=== PATIENT | female | born 1995 | race Caucasian/White ===

== ENCOUNTER 2017-01-06 10:39 | Inpatient (IN) | payer BC ==
[~2017-01-06] VITALS: Ht 157.5 cm; Wt 85.7 kg
[2017-01-06] MEDS ORDERED: PREN1TAB62 PO (11:00)
[2017-01-06 11:02] VITALS: Ht 157.5 cm; Wt 85.7 kg
[2017-01-06 11:04] VITALS: BP 107/81; PULSE 80; RESP 18
[2017-01-06 11:38] LABS: ADD UMIC YES; URINE BILIRUBIN (Dip) NEGATIVE (NEGATIVE); URINE BLOOD (Dip) 3+ (NEGATIVE); URINE COLOR LT. YELLOW (YELLOW); URINE GLUCOSE (Dip) NEGATIVE (NEGATIVE); URINE KETONES (Dip) NEGATIVE (NEGATIVE); URINE LEUKOCYTE ESTERASE (Dip) NEGATIVE (NEGATIVE); URINE NITRITE (Dip) NEGATIVE (NEGATIVE); URINE TOTAL PROTEIN (Dip) 1+ (NEGATIVE); URINE UROBILINOGEN (Dip) 0.2 E.U./dL (0.1-1.0)
--- NOTE | 2017-01-06 11:42 | RADRPT ---
PROCEDURE: OB ultrasound for biophysical profile CLINICAL INDICATION: Poor tone. TECHNIQUE: Multiple sonographic images of the pelvis were obtained. Transabdominal views of the g ravid uterus are available for review. The images were reviewed on a PACS workstation. COMPARISON: None FINDINGS: breathing movement = 2/2 tone = 2/2 motion = 2/2 SELAM = 2/2 SELAM = 7.0 cm Single live intrauterine with cardiac activity of 136 bpm. position is cephal ic. The placenta is anterior. IMPRESSION: 1. Single live intrauterine gestation. 2. Biophysical profile = 8/8. 3. SELAM = 7.0 cm. RPTAT: HH .Pratibha Marin MD, MD Date Time Electronically viewed and signed by .Pratibha Marin MD, on 01/06/2017 11:42 .G/
--- NOTE | 2017-01-06 11:44 | RADRPT ---
PROCEDURE: US OB. CLINICAL INDICATION: Size and dates TECHNIQUE: Multiple sonographic images of the pelvis were obtained. Transabdominal imaging only w as performed. The images were reviewed on a PACS workstation. COMPARISON: No prior studies are available for comparison. FINDINGS: There is a single live intrauterine gestation. Cardiac activity is present with 129 beats per minut e. position is cephalic. Measurements were made in order to determine age. The results are as follows: BPD = 8.54 cm HC = 30.10 cm AC = 32.62 cm FL = 7.02 cm. Estimated gestational age of approximately 35 weeks 1 day. The estimated date of delivery is 02/09/2017. The EFW = 2773 g, 4.8 %ile. The placenta is anterior. There is no evidence for an abruption or placenta previa. There are no adnexal masses. IMPRESSION: 1. Single live intrauterine gestation of approximately 35 weeks 1 day, by ultrasound criteria. 2. The estimated date of delivery is 02/09/2017. 3. The estimated weight is 2773 g, 4.8 %ile. RPTAT: HH .Pratibha Marin MD, Date Time Electronically viewed and signed by .Pratibha Marin MD, on 01/06/2017 11:44 .G/
[2017-01-06 11:57] LABS: SQUAMOUS EPITHELIAL CELL,UR FEW
[2017-01-06] MEDS ORDERED: LACTATED RINGER'S 1,000 ML IV SCH (12:29)
[2017-01-06] MEDS ORDERED: OXYTOCIN 30 UNITS/LR 500 ML IV SCH ×3 (12:30)
[2017-01-06] MEDS ORDERED: LACTATED RINGER'S 1,000 ML IV PRN (12:30)
[2017-01-06] MEDS ORDERED: BUTORPHANOL 2 MG INJ IV PRN (12:30)
[2017-01-06] MEDS ORDERED: MISOPROSTOL 200 MCG TAB PR PRN ×2 (12:30→19:00)
[2017-01-06] MEDS ORDERED: CARBOPROST 250 MCG INJ IM PRN ×2 (12:30→19:00)
[2017-01-06] MEDS ORDERED: LIDOCAINE 1% (MPF) 30 ML INJ INJ PRN (12:30)
[2017-01-06] MEDS ORDERED: METHYLERGONOVINE 0.2 MG INJ IM PRN ×2 (12:30→19:00)
[2017-01-06] MEDS ORDERED: OXYTOCIN 30 UNITS/LR 500 ML IV PRN ×2 (12:30→19:00)
[2017-01-06 13:53] LABS: ADD SCAN DIFF NO
[2017-01-06 13:56] LABS: BASOPHILS % 0.3 % (0.0-2.0); EOSINOPHILS # 0.1 10^3/ul (0.0-0.5); EOSINOPHILS % 1.4 % (0.0-7.0); HEMATOCRIT 38.6 % (37.0-47.0); HEMOGLOBIN 12.9 g/dl (12.0-16.0); LYMPHOCYTES # 2.2 10^3/ul (0.8-2.9); LYMPHOCYTES % 22.8 % (15.0-51.0); MEAN CORPUSCULAR HEMOGLOBIN 28.5 pg (29.0-33.0); MEAN CORPUSCULAR HGB CONC 33.4 g/dl (32.0-37.0); MEAN CORPUSCULAR VOLUME 85.4 fl (82.0-101.0); MEAN PLATELET VOLUME 11.9 fl (7.4-10.4); MONOCYTE # 0.4 10^3/ul (0.3-0.9); MONOCYTES % 3.7 % (0.0-11.0); NEUTROPHIL # 6.9 10^3/ul (1.6-7.5); NEUTROPHILS % 71.3 % (39.0-77.0); PLATELET COUNT 200 10^3/UL (140-415); RED BLOOD COUNT 4.52 10^6/ul (4.20-5.40); RED CELL DISTRIBUTION WIDTH 14.7 % (11.5-14.5); WHITE BLOOD COUNT 9.7 10^3/ul (4.8-10.8)
[2017-01-06 14:14] LABS: INR 0.88; PROTIME 11.9 Sec (12.2-14.2); PT RATIO 0.9
[2017-01-06 14:15] LABS: PARTIAL THROMBOPLASTIN TIME 26.5 Sec (25.0-35.0)
--- NOTE | 2017-01-06 16:42 | HP ---
Date/Time of Note Date/Time of Note DATE: 01/06/17 TIME: 16:36 OB - History Hx of Present Free Text/Dictation 21 y.o primigravidaa at 39w3 dwith srom at 1000 this am uterine contraction irregular , clear fluid confirmed srom GBS NEG VE 2cm 50% -2 admitted for expectant management and poss augmentation Chief Complaint: srom at 1000 01/06/17 Estimated Due Date: Jan 10, 2017 : 1 Para: 0 Spontaneous : 0 Therapeutic : 0 Care: Good Care Ultrasounds: Normal mid trimester US Obstetrical Complications: None Medical Complications: None Past Family/Social History * Past Medical, Surgical, Family and Obstetric Histories reviewed from chart. Blood Type: O+ Rubella: immune RPR/VDRL: Negative GBS Status: Negative HBsAG: Negative OB Admission Exam Vital Signs Vital Signs Vital Signs Date Time Temp Pulse Resp B/P Pulse Ox O2 Delivery O2 Flow Rate FiO2 01/06/17 11:04 98.3 80 18 107/81 100 Room Air Physical Exam HEENT: WNL Heart: Rhythm Normal Lungs: Clear, Equal Abdomen: WNL Extremities: Normal Reflexes: Normal Cervical Dilatation: 2cm Effacement: 50% Station: -2 Membranes: Ruptured Amniotic Fluid: Clear Heart Rate: 140's Accelerations: Accelerations Present Decelerations: No Decelerations Varibility: Moderate Contractions on Admission: >10 Minutes Apart Intensity: Mild Last 72 hours Lab Results CBC & BMP 01/06/17 13:32 OB Assessment/Plan Reason for admission: rupture of membranes Other Assessment: IUP 39W3D Plan: Expectant Management, Other (AUGMENTATION) MEREDITH LOPEZ MD Jan 06, 2017 16:42
--- NOTE | 2017-01-06 16:45 | LDN ---
Date/Time of Note Date/Time of Note DATE: 01/06/17 TIME: 16:42 Delivery Summary NORMAL VAGINAL DEKIVERY Placenta Delivered: Spontaneously Meconium: none Perineum intact?: No Perineal laceration: 2 Perineal laceration repair: 00CH GUT Anesthesia type: Local Estimated blood loss: 100 Sponge & Needle done & correct: Yes All needle counts correct: Yes Any foreign bodies felt in the: No Problems: Delivery Information Sex Infant Sex: male Apgars 1 Minute: 8 5 Minute: 9 Suctioning Nose & mouth suctioned at alta: Yes Umbilical Cord Umbilical cord with: 3 Vessels Cord presentations: nuchal cord Nuchal cord present X: 1 Cord Blood was obtained: Yes Mother & Baby Disposition Disposition Mom & Baby to Maternity; Good: Yes Mom transferred to: Other () Baby to NICU: No MEREDITH LOPEZ MD Jan 06, 2017 16:45
[2017-01-06 18:45] VITALS: BP 117/64; PULSE 57; RESP 18
[2017-01-06] MEDS ORDERED: ZOLPIDEM 5 MG TAB PO PRN (19:00)
[2017-01-06] MEDS ORDERED: LANOLIN 7 GM TUBE TOP PRN (19:00)
[2017-01-06] MEDS ORDERED: OXYCODONE/ASPIRIN (4.88/325) TAB PO PRN ×2 (19:00)
[2017-01-06] MEDS ORDERED: WITCH HAZEL/GLYCERIN PAD PR PRN (19:00)
[2017-01-06] MEDS ORDERED: BENZOCAINE 20% 56 ML SPRAY TOP PRN (19:00)
[2017-01-06] MEDS: IBUPROFEN 600 MG TAB PO SCH (19:30)
[2017-01-06 20:00] VITALS: BP 116/91; PULSE 72; RESP 18
[2017-01-06] MEDS: SENNA/DOCUSATE NA (8.6MG/50MG) TAB PO SCH (20:38)
[2017-01-07] MEDS: IBUPROFEN 600 MG TAB PO SCH ×4 (00:01→17:18)
[2017-01-07 00:10] VITALS: BP 102/68; PULSE 62; RESP 18
[2017-01-07 04:10] VITALS: BP 103/51; PULSE 54; RESP 18
[2017-01-07 08:02] LABS: ADD SCAN DIFF NO
[2017-01-07 08:05] LABS: BASOPHILS % 0.2 % (0.0-2.0); EOSINOPHILS # 0.1 10^3/ul (0.0-0.5); EOSINOPHILS % 0.7 % (0.0-7.0); HEMATOCRIT 32.3 % (37.0-47.0); HEMOGLOBIN 11.1 g/dl (12.0-16.0); LYMPHOCYTES # 2.8 10^3/ul (0.8-2.9); LYMPHOCYTES % 21.7 % (15.0-51.0); MEAN CORPUSCULAR HEMOGLOBIN 29.4 pg (29.0-33.0); MEAN CORPUSCULAR HGB CONC 34.4 g/dl (32.0-37.0); MEAN CORPUSCULAR VOLUME 85.7 fl (82.0-101.0); MEAN PLATELET VOLUME 12.2 fl (7.4-10.4); MONOCYTE # 0.6 10^3/ul (0.3-0.9); NEUTROPHIL # 9.1 10^3/ul (1.6-7.5); NEUTROPHILS % 71.9 % (39.0-77.0); PLATELET COUNT 176 10^3/UL (140-415); RED BLOOD COUNT 3.77 10^6/ul (4.20-5.40); RED CELL DISTRIBUTION WIDTH 14.7 % (11.5-14.5); WHITE BLOOD COUNT 12.7 10^3/ul (4.8-10.8)
--- NOTE | 2017-01-07 08:36 | PN ---
Date/Time of Note Date/Time of Note DATE: 01/07/17 TIME: 08:34 OB Subjective Subjective Subjective no c/o OB Objective Objective Objective vss afebrile fundus firm lochia min calf no tenderness OB Assessment/Plan Other Assessment: stable s/p Other plan: DISCHARGE IN AM MEREDITH LOPEZ MD Jan 07, 2017 08:36
[2017-01-07 08:45] VITALS: BP 110/61; PULSE 63; RESP 18
[2017-01-07] MEDS: SENNA/DOCUSATE NA (8.6MG/50MG) TAB PO SCH ×2 (09:18→21:00)
[2017-01-07 16:25] VITALS: BP 110/61; PULSE 63; RESP 18
[2017-01-07 20:15] VITALS: BP 116/62; PULSE 57; RESP 18
[2017-01-08 03:59] VITALS: BP 106/53; PULSE 55; RESP 18
[2017-01-08] MEDS: IBUPROFEN 600 MG TAB PO SCH ×3 (05:37→12:46)
[2017-01-08 08:22] VITALS: BP 104/52; RESP 20
[2017-01-08] MEDS: SENNA/DOCUSATE NA (8.6MG/50MG) TAB PO SCH (08:50)
[2017-01-08] MEDS ORDERED: DIPHTH/TET/ACEL PERTUSS (ADULT) 0.5 ML VIAL IM* ONE (09:00)
--- NOTE | 2017-01-08 09:03 | PD.PPDC ---
[employer] SUPERVISOR Discharge Instruction Diagnosis Final Diagnosis: s/p normal vaginal delivery Condition Patient Condition: Stable Diet Diet: Resume Regular Diet Activity/Restrictions Activity: May Shower Restrictions: No Lifting No Sexual Activity Nothing in the Vagina No [place] No Tampons, douche Follow-up Follow-up with Physician: 6, Week/Weeks Return to clinic for DESIGN SPECIALIST Instructions: Fever greater than 101 Chills Worsening abdominal pain Excessive Vaginal Bleeding More than 2 pads per hour Unable to tolerate diet OB Instructions: Breast Tenderness Depression Blurried Vision Headache MEREDITH LOPEZ MD Jan 08, 2017 09:03
--- NOTE | 2017-01-08 09:06 | DS ---
Date/Time of Note Date/Time of Note DATE: 01/08/17 TIME: 09:05 Obstetrical Discharge Record Final Diagnosis Final Diagnosis: Term delivered Vaginal Delivery Obstetrical Delivery: Spontaneous, Laceration, Repaired Complications Augmentation: Yes Condition on Discharge Physical Assessment Last Vitals: vss afebrile Voiding: Yes Bowel Movement: Yes Breast: Soft, non-tender Calf Tenderness: No Patient Condition: Stable MEREDITH LOPEZ MD Jan 08, 2017 09:06
[2017-01-09] MEDS ORDERED: INFLUENZA VIRUS VACCINE 0.5 ML (DISPENSING) IM* ONE (09:00)
== END 2017-01-08 13:50 | disposition home or self-care (01) | DRG 775 ==
LOC: OBT 10:39 → L-D 10:39 → OBT 11:48 → L-D 11:50 → PP1 18:32
PROVIDERS: ADMIT Obstetrics & Gynecology; ATTEND Obstetrics & Gynecology
PROC: 10E0XZZ Delivery of Products of Conception, External Approach (ICD-10-PCS; principal; 2017-01-06)
PROC: 0KQM0ZZ Repair Perineum Muscle, Open Approach (ICD-10-PCS; 2017-01-06)
DX: O69.81X0 Labor and delivery complicated by cord around neck, without compression, not applicable or unspecified (principal); O70.1 Second degree perineal laceration during delivery; Z3A.39 39 weeks gestation of pregnancy; Z37.0 Single live birth
CPT/HCPCS: 76815; 76818; 81001; 81003; 84112; 85025; 85610; 85730; 86592; 86900; 86901; 87340; 90715; G0463; J2590; J7120